=== PATIENT | male | born 1985 | race Caucasian/White ===

== ENCOUNTER 2018-11-20 11:42 | Emergency (ER) | payer MEDICARE, MEDICAID, SELFPAY ==
[2018-11-20 11:44] VITALS: BP 184/102; PULSE 61; RESP 16; TEMP 36.6; O2SAT 98
--- NOTE | 2018-11-20 11:55 | ED.GENADUL_ITS ---
Discharge Plan Disposition Patient Disposition: HOME Condition: Stable Discharge Details Chief Complaint: DentalOral Clinical Impression: Dental infection Primary Care Provider: Lelia Acuña ED Provider: Darrius Harry Home Meds and New Rx's Prescriptions: New penicillin V potassium 500 mg tablet 500 mg PO QID 10 Days Qty: 40 RF: 0 Continued cetirizine 10 MG tablet,chewable 10 mg PO PRN PRNRF: 0 meloxicam [Mobic] 7.5 MG tablet 7.5 mg PO DAILY RF: 0 ibuprofen [Ibuprofen IB] 200 MG tablet 200 mg PO PRN PRNRF: 0 Discharge Instructions Instructions: Dental Caries (ED) Additional Instructions: follow up with your dentist you can take 1000mg tylenol and 600mg ibuprofen every 6 hours for pain as needed if you have inability to swallow liquids or difficulty breathing return to the emergency department for reevaluation HPI General Mode of arrival: ambulatory . Date/Time Provider Initiated Documentation: 11/20/18 11:45 . Limitations to Documentation: no limitations . Information obtained by: patient . Related Data Home Medications Medication Instructions Recorded Confirmed cetirizine 10 mg PO PRN PRN 09/28/12 11/20/18 ibuprofen [Ibuprofen IB] 200 mg PO PRN PRN 05/26/13 11/20/18 meloxicam [Mobic] 7.5 mg PO DAILY 05/26/13 11/20/18 penicillin V potassium 500 mg PO QID 10 Days #40 tab 11/20/18 Previous Rx's Medication Instructions Recorded penicillin V potassium 500 mg PO QID 10 Days #40 tab 11/20/18 Allergies Allergy/AdvReac Type Severity Reaction Status Date / Time birch Allergy Unknown Unverified 11/20/18 11:48 mold Allergy Mild rash,sob Uncoded 11/20/18 11:48 ferrets AdvReac Mild watery eyes Uncoded 11/20/18 11:48 rabbits AdvReac Mild Skin Rash Uncoded 11/20/18 11:48 General Stated Complaint: DentalOral CHI: 4 PFSH Social History Smoking/Tobacco Use Status: Current every day Tobacco Type: cigarettes Drug use: Never Substance use type: does not use Do you feel safe at home: Yes Do you feel safe in your relationship?: Yes Course Vital Signs Temperature 36.6 C 11/20/18 11:44 Pulse 61 11/20/18 11:44 Respiratory Rate 16 11/20/18 11:44 Blood Pressure 184/102 H 11/20/18 11:44 Pulse Oximetry 98 11/20/18 11:44 Temperature 36.6 C 11/20/18 11:44 Temperature Source Temporal Artery Scan 11/20/18 11:44 Pulse 61 11/20/18 11:44 Respiratory Rate 16 11/20/18 11:44 Respiratory Effort Non-Labored 11/20/18 11:46 Blood Pressure 184/102 H 11/20/18 11:44 Blood Pressure Position Sitting 11/20/18 11:44 Pulse Oximetry 98 11/20/18 11:44 Oxygen Delivery Method Room Air 11/20/18 11:44 Oxygen Flow Rate 0 11/20/18 11:44 Pain Level 0 11/20/18 11:47
== END 2018-11-20 12:00 | disposition home or self-care (01) ==
PROVIDERS: Emergency Provider Emergency Medicine; PCP Nurse Practitioner Family
DX: R68.84 Jaw pain (principal); K04.7 Periapical abscess without sinus
CPT/HCPCS: 99283

== ENCOUNTER 2023-11-16 13:57 | Emergency (ER) | payer MEDICARE, SELFPAY ==
[2023-11-16 14:02] VITALS: BP 134/79; PULSE 76; RESP 18; TEMP 37.6; O2SAT 97
--- NOTE | 2023-11-16 14:33 | W.ED.GENAD ---
Discharge Plan Disposition Patient Disposition: Home Condition: Stable Discharge Details Clinical Impression: Infected dental caries Primary Care Provider: Lelia Acuña ED Provider: Patricia Andino Home Meds and New Rx's Prescriptions: New amoxicillin-pot clavulanate 875-125 mg tablet 1 tab PO BID 10 Days Qty: 20 0RF No Action cetirizine 10 MG tablet,chewable 10 mg PO PRN PRN meloxicam [Mobic] 7.5 MG tablet 7.5 mg PO DAILY ibuprofen [Ibuprofen IB] 200 MG tablet 200 mg PO PRN PRN Discharge Instructions Instructions: Dental Pain ED, Tooth Abscess ED, Tooth Decay ED Additional Instructions: You do still need to see a dentist. Please take the antibiotics twice daily as prescribed. Take the pain medication as prescribed. You may also get [id number] numbing medication, practice good oral hygiene and wash out your mouth after eating or drinking anything swish with salt water gargles. [place] your teeth twice daily even if it hurts. Please consider quitting smoking. Please take Tylenol or Ibuprofen with food every 4-6 hours as needed for pain and swelling. Referrals: Lelia Acuña [Primary Care Provider] - 5 days HPI General Mode of arrival: ambulatory. Date/Time Provider Initiated Documentation: 11/16/23 14:27. Limitations to Documentation: no limitations. Information obtained by: patient, RN notes reviewed and old records reviewed. HPI Narrative: 37-year-old male presents to the ER with a chief complaint of right cheek swelling and front dental pain for the last 4 days. Does have poor dentition is a daily smoker. He does see dentist in [facility]. He has been taking Tylenol with little to no relief. No recent antibiotics. Related Data Home Medications Medication Instructions Recorded Confirmed cetirizine 10 mg chewable tablet 10 mg PO PRN PRN 09/28/12 11/20/18 ibuprofen 200 mg tablet (Ibuprofen 200 mg PO PRN PRN 05/26/13 11/20/18 IB) meloxicam 7.5 mg tablet (Mobic) 7.5 mg PO DAILY 05/26/13 11/20/18 amoxicillin 875 mg-potassium 1 tab PO BID 10 days #20 tabs 11/16/23 clavulanate 125 mg tablet Previous Rx's Medication Instructions Recorded amoxicillin 875 mg-potassium 1 tab PO BID 10 days #20 tabs 11/16/23 clavulanate 125 mg tablet Allergies Allergy/AdvReac Type Severity Reaction Status Date / Time birch Allergy Unknown Unknown Unverified 11/16/23 14:06 mold Allergy Mild rash,sob Uncoded 11/16/23 14:06 ferrets AdvReac Mild watery eyes Uncoded 11/16/23 14:06 rabbits AdvReac Mild Skin Rash Uncoded 11/16/23 14:06 General Stated Complaint: DentalOral CHI: 4 Review of Systems All systems reviewed & are unremarkable except as noted in HPI and below ENT Ears, Nose, Mouth, and Throat: Reports as per HPI, Denies change in voice, Reports dental pain, Denies otalgia, Reports facial pain, Reports lip swelling, Denies epistaxis and Reports mouth pain Respiratory Respiratory: Reports system reviewed and no additional complaints, except as documented Allergic/Immunologic Allergic/Immunologic: Reports lip swelling Exam HENPA Head: normal to inspection General nose exam: external nose normal, nares normal and no nasal discharge Face and sinus: edema on the right maxilla and upper lip and tenderness on the right maxilla and upper lip Mouth: lip normal, tongue normal, oropharynx normal, moist mucous membranes, no audible dysphonia and no drooling Teeth and gingiva: caries, gingiva abnormal (No fluctuance, no purulent discharge,) edematous, diffusely erythematous, tender and receding; without any purulent discharge and poor dentition Throat: posterior oropharynx normal Course Vital Signs Vital signs: Vital Signs Temperature 37.6 C 11/16/23 14:02 Pulse 76 11/16/23 14:02 Respiratory Rate 18 11/16/23 14:02 Blood Pressure 134/79 11/16/23 14:02 Pulse Oximetry 97 11/16/23 14:02 Temperature 37.6 C 11/16/23 14:02 Temperature Source Skin 11/16/23 14:02 Pulse 76 11/16/23 14:02 Respiratory Rate 18 11/16/23 14:02 Blood Pressure 134/79 11/16/23 14:02 Blood Pressure Position Sitting 11/16/23 14:02 Pulse Oximetry 97 11/16/23 14:02 Oxygen Delivery Method Room Air 11/16/23 14:02 Oxygen Flow Rate 0 11/16/23 14:02 Medical Decision Making 37-year-old male presents to the ER with a chief complaint of right cheek swelling and front dental pain for the last 4 days. Does have poor dentition is a daily smoker. He does see dentist in [facility]. He has been taking Tylenol with little to no relief. No recent antibiotics. No area of fluctuance palpated intraorally, he does have some indurated area to his right maxillary sinus, no drainage speaking in full sentences. Discussed home care oral hygiene and follow-up with dentist they verbalized understanding. He has tried HurriCaine gel in the past which has not helped. Patient given Augmentin here in the department for 10 days twice daily, first dose given here in the ER. Will give him tramadol 4 tablets to go and strict return instructions. Patient given dental resources. This text was generated using ? dictation system, please disregard any oddities of phrase or misspellings. Quality:SDOH Health Related Social Needs: No Data to Display PFSH All Active Problems (Updated 11/16/23 @ 14:37 by Patricia Andino NP) Infected dental caries (Acute) Social History Smoking/Tobacco Use Status: Current every day Tobacco Type: cigarettes Smoking risk assessment performed?: Yes Drug use: Never Substance use type: does not use Do you feel safe at home: Yes Do you feel safe in your relationship?: Yes
[2023-11-16] MEDS: traMADol 50 MG TAB PO (14:58)
[2023-11-16] MEDS: Amoxicillin 875/Clav. 125 TAB PO (14:58)
== END 2023-11-16 15:01 | disposition home or self-care (01) ==
PROVIDERS: Emergency Provider Registered Nurse Emergency; PCP Nurse Practitioner Family
DX: K04.7 Periapical abscess without sinus (principal); K02.9 Dental caries, unspecified; F17.210 Nicotine dependence, cigarettes, uncomplicated
CPT/HCPCS: 99283